=== PATIENT | male | born 1995 | race Caucasian/White ===

== ENCOUNTER 2018-02-04 08:38 | Emergency (ER) | payer MEDICAID ==
[2018-02-04] MEDS ORDERED: methylPREDNISolone SS 40 mg Vial IM ONE (09:15)
--- NOTE | 2018-02-20 13:53 | ER Physician Documentation ---
DATE OF SERVICE: 02/04/2018 CHIEF COMPLAINT: Skin rash. HISTORY OF PRESENT ILLNESS: The patient presents to the ER with a 2-week history of rash to his webspace of both hands, his axilla, his thoracic area, his left wrist and shoulders with itching. He denies any other complaints. He denies any shortness of breath or chest pain or throat swelling. PAST MEDICAL HISTORY: Unremarkable. PAST SURGICAL HISTORY: Unremarkable. REVIEW OF SYSTEMS: Positive for skin rash. Review of systems negative for fevers, chills, neck rigidity, nausea, vomiting, diarrhea or constipation. The patient tells me that he does use Tide as well as fabric softener. He does have pets at home and he is concerned that he has scabies. PHYSICAL EXAMINATION: SKIN: The patient has a fine rash that looks more consistent with yeast present on between couple webspaces, on his chest, and left axilla area. This is classic for yeast. He has no real intertriginous areas or folds present. LUNGS: Clear to auscultation bilaterally. COR: Regular rate and rhythm. The patient's oropharynx is patent with no evidence of airway swelling. ASSESSMENT AND PLAN: Yeast infection of the skin exacerbated by exposure to Tide and fragrance. The patient was counseled to avoid all fragrance, to change the detergent from Tide to all fragrance free, to avoid any fabric softener and he was given a prescription for Lotrisone. He was also offered a shot of Solu-Medrol 62.5 mg and he received this. The patient was told to follow up with his primary care physician or with the tire building supervisor if this continued. I do not think that he will have any problems if he follows my directions. JOB# [id number]
== END 2018-02-04 09:30 | disposition home or self-care (01) ==
LOC: ER 08:38
DX: B37.9 Candidiasis, unspecified (principal); R21 Rash and other nonspecific skin eruption
CPT/HCPCS: 99283; J2930; Z7502

== ENCOUNTER 2018-03-03 10:09 | Emergency (ER) | payer MEDICAID ==
--- NOTE | 2018-03-03 11:04 | ED Physician Chart ---
ED Chief Complaint/HPI - Patient Information Date Seen:: 03/03/18 Time Seen:: 10:39 Chief Complaint:: rash History of Present Illness:: THIS IS A 23 YR OLD MALE WHO IS CONCERNED ABOUT A RASH ON HIS BODY. HE WAS SEEN HERE RECENTLY AND TREATED FOR A FUNGAL INFECTION. HE STATES THAT THE RASH HAS NOT GONE AWAY AND NEW RASH AREA HAVE ARRIVED. HE DENIES FEVER ,COUGH, NASAL DISCHARGE AND NAUSEA. Allergies:: Allergies Allergy/AdvReac Type Severity Reaction Status Date / Time No Known Allergies Allergy Verified 02/04/18 08:45 Vitals:: Vital Signs - 8 hr 03/03/18 03/03/18 10:31 10:53 Temp 98.6 F 98.6 F HR 82 82 RR 16 16 BP 126/76 126/76 O2 Sat % 97 99 Historian:: Patient Review:: Nurse's Note Reviewed, Old Chart Reviewed ED Review of Systems - Review of Systems General/Constitutional: No fever, No chills, No weight loss, No weakness, No diaphoresis, No edema, No loss of appetite Skin: No skin lesions, Rash, No bruising Head: No headache, No light-headedness Eyes: No loss of vision, No pain, No diplopia ENT: No earache, No nasal drainage, No sore throat, No tinnitus Neck: No neck pain, No swelling, No thyromegaly, No stiffness, No mass noted Cardio Vascular: No chest pain, No palpitations, No PND, No orthopnea, No edema Pulmonary: No SOB, No cough, No sputum, No wheezing GI: No nausea, No vomiting, No diarrhea, No pain, No melena, No hematochezia, No constipation, No hematemesis G/U: No dysuria, No frequency, No hematuria Musculoskeletal: No bone or joint pain, No back pain, No muscle pain Endocrine: No polyuria, No polydipsia Psychiatric: No prior psych history, No depression, No anxiety, No suicidal ideation Hematopoietic: No bruising, No lymphadenopathy Allergic/Immuno: No urticaria, No angioedema Neurological: No syncope, No focal symptoms, No weakness, No paresthesia, No headache, No seizure, No dizziness, No confusion, No vertigo ED Past Medical History - Past Medical History Obtainable: Yes Past Medical History: No significant medical hx Family History: None Social History: Non Smoker (SMOKES THC), No Alcohol, No Drug Use, Single, Lives With Parents Surgical History: None Medication: Reviewed Family Medical History - Family Member Mother History Unknown: Yes Living Status: Still Living ED Physical Exam - Physical Examination General/Constitutional: Awake, Well-developed, well-nourished, Alert, No distress, GCS 15, Non-toxic appearing, Ambulatory Head: Atraumatic Eyes: Lids, conjuctiva normal, PERRL, EOMI Skin: Nl inspection, No skin lesions, No ecchymosis, Well hydrated, No lymphadenopathy Other Skin comments:: THERE ARE AREAS OF LATERAL TRUNK AND ARMS. ENMT: External ears, nose nl, Nasal exam nl, Lips, teeth, gums nl Neck: Nontender, Full ROM w/o pain, No JVD, No nuchal rigidity, No bruit, No mass, No stridor Respiratory: Nl effort/Exclusion, Clear to Auscultation, No Wheeze/Rhonchi/Rales Cardio Vascular: RRR, No murmur, gallop, rubs, NL S1 S2 GI: No tenderness/rebounding/guarding, No organomegaly, No hernia, Normal BS's, Nondistended, No mass/bruits, No McBurney tenderness : No CVA tenderness Extremities: No tenderness or effusion, Full ROM, normal strength in all extremities, No edema, Normal digits & nails Neuro/Psych: Alert/oriented, DTR's symmetric, Normal sensory exam, Normal motor strength, Judgement/insight normal, Mood normal, Normal gait, No focal deficits Misc: Normal back, No paraspinal tenderness ED Assessment - Assessment General Assessment: SCABIES INFECTION ED Septic Shock - . Is Septic Shock (SBP<90, OR Lactate>4 mmol\L) present?: No - <6hrs of presentation: Vital Signs: Vital Signs - 8 hr 03/03/18 03/03/18 10:31 10:53 Temp 98.6 F 98.6 F HR 82 82 RR 16 16 BP 126/76 126/76 O2 Sat % 97 99 ED Reassessment (Disposition) - Reassessment Reassessment Condition:: Unchanged - Diagnosis Diagnosis:: SCABIES - Aftercare/Follow up Instructions Aftercare/Follow-Up Instructions:: Counseled pt regarding lab results/diagnosis & need follow up, Refer to Discharge Instructions, Counseled pt & family regarding lab results/diagnosis & need follow up Medication Prescribed:: KWELL LOTION AND SHAMPOO - Patient Disposition Discharge/Transfer:: Home Condition at Disposition:: Unchanged
== END 2018-03-03 11:02 | disposition home or self-care (01) ==
LOC: ER 10:09
DX: B86 Scabies (principal)
CPT/HCPCS: Z7502